=== PATIENT | male | born 1995 | race African-American/Black ===

== ENCOUNTER 2018-11-30 21:45 | Inpatient (IN) | payer OTHER ==
[~2018-11-30] VITALS: Ht 175.3 cm; Wt 65.9 kg
[2018-11-30 22:21] LABS: HEMATOCRIT 42.6 % (42.0-52.0); HEMOGLOBIN 14.1 g/dl (13.5-17.5); MEAN CORPUSCULAR HEMOGLOBIN 29.6 pg (27.0-33.0); MEAN CORPUSCULAR HGB CONC 33.1 g/dl (32.0-36.5); MEAN CORPUSCULAR VOLUME 89.3 fl (80.0-96.0); PLATELET COUNT, AUTOMATED 164 10^3/uL (150-450); RED BLOOD COUNT 4.77 10^6/uL (4.30-6.10); WHITE BLOOD COUNT 8.4 10^3/uL (4.0-10.0)
[2018-11-30 22:40] LABS: AMPHETAMINES LEVEL URINE NEGATIVE (NEGATIVE); BARBITURATES URINE NEGATIVE (NEGATIVE); BENZODIAZEPINES URINE NEGATIVE (NEGATIVE); CANNABINOIDS URINE NEGATIVE (NEGATIVE); COCAINE METABOLITE URINE NEGATIVE (NEGATIVE); METHADONE URINE NEGATIVE (NEGATIVE); OPIATES URINE NEGATIVE (NEGATIVE); PHENCYCLIDINE URINE NEGATIVE (NEGATIVE)
[2018-11-30 22:53] LABS: ACETAMINOPHEN LEVEL < 2.0 UG/ML (10.0-30.0); ALBUMIN 4.3 GM/DL (3.2-5.2); ALT/SGPT 26 U/L (12-78); BILIRUBIN,DIRECT 0.2 MG/DL (0.0-0.2); BILIRUBIN,TOTAL 0.8 MG/DL (0.2-1.0); BLOOD UREA NITROGEN 11 MG/DL (7-18); CALCIUM LEVEL 8.8 MG/DL (8.5-10.1); CARBON DIOXIDE LEVEL 30 MEQ/L (21-32); CHLORIDE LEVEL 104 MEQ/L (98-107); CREATININE FOR GFR 1.03 MG/DL (0.70-1.30); ETHYL ALCOHOL (ETHANOL) < 0.003 % (0.000-0.010); GLOMERULAR FILTRATION RATE > 60.0 (>60); GLUCOSE, FASTING 86 MG/DL (70-100); POTASSIUM SERUM 3.6 MEQ/L (3.5-5.1); SALICYLATE LEVEL < 1.7 MG/DL (5.0-30.0); SODIUM LEVEL 143 MEQ/L (136-145); THYROID STIMULATING HORMONE 0.461 uIU/ML (0.358-3.740); TOTAL PROTEIN 7.9 GM/DL (6.4-8.2)
[2018-11-30] MEDS ORDERED: MAALOX 30 ML SUSP *UDC PO PRN (23:30)
[2018-11-30] MEDS ORDERED: traZODone 50 MG TAB PO PRN (23:30)
[2018-11-30] MEDS ORDERED: MOM 30ML SUSPENSION UDC PO PRN (23:30)
[2018-11-30] MEDS ORDERED: ACETAMINOPHEN TAB 650MG DOSE (2X325MG) PO PRN (23:30)
[2018-12-01 02:04] VITALS: BP 96/52
--- NOTE | 2018-12-01 12:14 | MHHPEPDOC ---
General Date Of Admission: Nov 30, 2018 Legal Status: 9.39 Chief Complaint "I'm stressed, I'm not suicidal" History of Present Illness HISTORY OF THE PRESENT ILLNESS: Patient is a 23 -year-old , AD, male, with no previous psych history who brought to ED by EMS after being notified by pt's Wesley that he had made a comment to his commander at being suicidal with a plan to shoot himself and mentioned a 45 hand gun (no access to guns in [facility]) and asking to be dropped off at bridge to sit, think and look at the water all secondary to his aunt recently being diagnosed with breast cancer and unable to be home in [facility] to support her per ED. Pt in ED denied having any thoughts of suicide but just wanted to sit under a bridge to think about his sick aunt. Per ED by also having Wesley difficulties due [place] Pt appeared to be minimizing symptoms per ED. Psychiatric Review of Systems Depression (2 or more weeks): depressed mood Bri (4 or more days of): denies Psychosis: denies PTSD: denies Anxiety: stressor related anxiety Past Psychiatric History Previous Psychiatric Diagnosis: denies Previous Psychiatric Admissions: denies Suicide Attempts: denies Psychiatric Follow-up: denies Psychiatric Medications: none Past Medical History Medical Problems denies Head Injury: No Seizures: No Hospitalizations: No Surgeries: No Family Medical/Psychiatric HX Medical Problems noncontributory Psychiatric Disorders: No Addiction: No Suicide Attemps/Completions: No Addiction History nicotine Social History Childhood: born and raised [facility], parents never , spent time with each parent as parents friends, lived primarily with mother, 2 younger brothers and 1 younger sister. Good childhood Abuse/Trauma:denies. Current Living Situation: lives in [place] [facility] [place] Education:high school grad and 2 semesters college Employment: [employer] Social Support: family Legal: denies Marital: single, never , no kids Mental Status Examination General Appearance: well groomed, appears stated age, hospital scubs/clothing Build: average Demeanor: average Eye Contact: average Activity: average Behavior: cooperative Speech: clear, spontaneous, reg/rate,rhythm,volume Mood: euthymic Mood good Affect: full, appropriate, congruent Thought Process: logical/linear, intact Thought Content (Delusions): none reported, denies SI, HI, AVH Thought Content (Other): none reported Thought Content (Aggressive): none reported Perception (Hallucinations): none reported Perception (Other): none reported Cognition (Impairment of): none reported Cognition(Intelligence Est.): average Oriented: Awake, Alert, Oriented times three Insight: good Judgment: Good Psychosis: Denies Diagnoses adjustment d/o with depressed mood - mild A-FIB/CHADSVASC A-FIB History Current/History of A-Fib/PAF?: No Current PO Anticoag Therapy: No Treatment Treatment ordered: NONE Reason Anticoagulant not given: Not indicated/[id number] Assessment Pt seen and states he needs to be discharged today b/c he has an appt and he's not suicidal. Pt states his friends were concerned b/c he wanted to sit under a bridge and just think. Stated his friend notified his Wesley and his commander spoke with him for roughly an hour about what was going on in his life regarding not being home in [facility] and visiting his sick aunt in [place]. Denies he's suicidal. States his appt was a ticket to go by bus to [facility] today on pass. Denies he told his commander he was suicidal and wanting to shoot himself or anything about a 45 gun. Denies depression, anxiety. Feels safe to d/c with Wesley today. Initial Treatment Plan 1. Patient was admitted on a 9.39 status. 2. Complete history was obtained. 3. With patients permission, family will be contacted and database will be expanded. 4. Patients medication regimen will be reviewed and changed accordingly. 5. Patient will be provided with protected environment. 6. Patient will be treated with individual, group, and milieu therapies. 7. Patient will receive supportive psych-education. 8. Discharge planning will commence immediately. 9. Outpatient follow-up treatment will be strongly recommended. 10. The initial treatment plan will focus initially on: * Depression. * Risk for suicide. * Substance abuse. 11. monitory for safety ESTIMATED LENGTH OF STAY: 5-7 DAYS. TIME SPENT COUNSELING AND COORDINATING INITIAL CARE: 60 minutes. Vital Signs Vital Signs Date Time Temp Pulse Resp B/P (MAP) Pulse Ox O2 Delivery O2 Flow Rate FiO2 12/01/18 02:04 88.2 60 16 96/52 (67) 99 12/01/18 01:11 Room Air Laboratory Data 24H Labs Laboratory Tests 2 11/30/18 22:12: Nucleated Red Blood Cells % (auto) 0.0, Anion Gap 9, Glomerular Filtration Rate > 60.0, Calcium Level 8.8, Aspartate Amino Transf (AST/SGOT) 25, Alanine Aminotransferase (ALT/SGPT) 26, Alkaline Phosphatase 88, Total Bilirubin 0.8, Direct Bilirubin 0.2, Total Protein 7.9, Albumin 4.3, Albumin/Globulin Ratio 1.19, Thyroid Stimulating Hormone (TSH) 0.461, Salicylates Level < 1.7L, Urine Amphetamines Screen NEGATIVE, Urine Benzodiazepines Screen NEGATIVE, Urine Opiates Screen NEGATIVE, Urine Methadone Screen NEGATIVE, Acetaminophen Level < 2.0L, Urine Barbiturates Screen NEGATIVE, Urine Phencyclidine Screen NEGATIVE, Urine Cocaine Metabolite Screen NEGATIVE, Urine Cannabinoids Screen NEGATIVE, Ethyl Alcohol Level < 0.003 CBC/BMP Laboratory Tests 11/30/18 22:12 Red Blood Count 4.77, Mean Corpuscular Volume 89.3, Mean Corpuscular Hemoglobin 29.6, Mean Corpuscular Hemoglobin Concent 33.1, Red Cell Distribution Width 11.7 Medications No Active Prescriptions or Reported Meds Allergies Coded Allergies: No Known Allergies (Unverified , 11/30/18) WALTER CONLEY DO Dec 01, 2018 12:14
--- NOTE | 2018-12-01 17:12 | HPEPDOC ---
[facility] Medical History & Physical Date of Admission Nov 30, 2018 Date of Service: Dec 01, 2018 Attending Physician: WALTER FREITAS DO History and Physical CHIEF COMPLAINT: Medical evaluation requested by Dr Freitas HISTORY OF PRESENT ILLNESS:23 yo male currently in psychiatric unit for evaluation of suicidal intent,depression. He states no concerns at this time. He had a recent tatoo to right arm last week that is healing well. PAST MEDICAL HISTORY: none (patient denies DM,HTN,Thyroid disease) PAST SURGICAL HISTORY: none SOCIAL HISTORY: vapes nicotene daily, rare ETOH use Tattoos done unprofessionally: none - all tattoos done at professional sites with sterile needles and sterile individual ink containers per patient FAMILY HISTORY: both parents healthy ALLERGIES: Please see below. REVIEW OF SYSTEMS: 10 comprehensive systems reviewed and negative except as listed in HPI HOME MEDICATIONS: Please see below. PHYSICAL EXAMINATION: VITAL SIGNS: as below - questionable accuracy of values for 12/01/18 Vital Signs Label Value Date Time Patient Temperature 97.8 degrees F 11/30/182144 Temperature Source Temporal 11/30/182144 Pulse 74 11/30/182144 Respiratory Rate 16 bpm 11/30/182144 Blood Pressure Assessment 132/86 (101) 11/30/182144 Location Left Arm Source Automatic Cuff (NIBP) Position Sitting Bedside Pulse Oximetry 97 % 11/30/182144 GENERAL APPEARANCE: pleasant, NAD, AAOx3 HEENT: no thyromegally/goiter CARDIOVASCULAR: HRRR no murmur LUNGS: CTA no W/R/R ABDOMEN: deferred MUSCULOSKELETAL: normal gait, moves all 4 extremities; good muscle strength/tone. EXTREMITIES: no edema SKIN: multiple tattoo to bilateral arms NEUROLOGICAL: CN3-12 intact, no gross motor or sensory deficits. LABORATORY DATA: See below. ASSESSMENT: 23 yo medically healthy male with suicidal ideation/depression PLAN: Patient is medically stable. will sign off at this time. thank you for allowing the hospitalists to participate in the care of this patient . please call if need arises Vital Signs Vital Signs Date Time Temp Pulse Resp B/P (MAP) Pulse Ox O2 Delivery O2 Flow Rate FiO2 12/01/18 02:04 88.2 60 16 96/52 (67) 99 12/01/18 01:11 Room Air Laboratory Data Labs 24H Laboratory Tests 2 11/30/18 22:12: Nucleated Red Blood Cells % (auto) 0.0, Anion Gap 9, Glomerular Filtration Rate > 60.0, Calcium Level 8.8, Aspartate Amino Transf (AST/SGOT) 25, Alanine Aminotransferase (ALT/SGPT) 26, Alkaline Phosphatase 88, Total Bilirubin 0.8, Direct Bilirubin 0.2, Total Protein 7.9, Albumin 4.3, Albumin/Globulin Ratio 1.19, Thyroid Stimulating Hormone (TSH) 0.461, Salicylates Level < 1.7L, Urine Amphetamines Screen NEGATIVE, Urine Benzodiazepines Screen NEGATIVE, Urine Opiates Screen NEGATIVE, Urine Methadone Screen NEGATIVE, Acetaminophen Level < 2.0L, Urine Barbiturates Screen NEGATIVE, Urine Phencyclidine Screen NEGATIVE, Urine Cocaine Metabolite Screen NEGATIVE, Urine Cannabinoids Screen NEGATIVE, Ethyl Alcohol Level < 0.003 CBC/BMP Laboratory Tests 11/30/18 22:12 Red Blood Count 4.77, Mean Corpuscular Volume 89.3, Mean Corpuscular Hemoglobin 29.6, Mean Corpuscular Hemoglobin Concent 33.1, Red Cell Distribution Width 11.7 Home Medications No Active Prescriptions or Reported Meds Allergies Coded Allergies: No Known Allergies (Unverified , 11/30/18) A-FIB/CHADSVASC A-FIB History Current/History of A-Fib/PAF?: No HAYLEE HOUGH DO Dec 01, 2018 17:12
[2018-12-01 18:12] VITALS: BP 122/59
[2018-12-02 07:11] VITALS: BP 123/64
--- NOTE | 2018-12-02 08:37 | MHDSPDOC ---
[facility] Discharge Summary Discharge Summary DATE OF ADMISSION: Nov 30, 2018 at 11:26 pm DATE OF DISCHARGE: Dec 02, 2018 DISCHARGE DIAGNOSES: adjustment d/o with depressed mood REASON FOR ADMISSION: Patient is a 23 -year-old , AD, male, with no previous psych history who brought to ED by EMS after being notified by pt's Wesley that he had made a comment to his commander at being suicidal with a plan to shoot himself and mentioned a 45 hand gun (no access to guns in [place]) and asking to be dropped off at bridge to sit, think and look at the water all secondary to his aunt recently being diagnosed with breast cancer and unable to be home in [facility] to support her per ED. Pt in ED denied having any thoughts of suicide but just wanted to sit under a bridge to think about his sick aunt. Per ED by also having Wesley difficulties due to "[place] Pt appeared to be minimizing symptoms per ED. CONSULTANTS INVOLVED: none TREATMENT AND PROGRESS ON THE UNIT : Pt was admitted to [facility], seen for psychiatric assessment and monitored for safety as he did not appear to need and declined snf psychotropic medication as he preferred to try therapy first. He was provided trazodone 50mg qhs prn insomnia. Pt found his medications beneficial and tolerated them well. He attended groups daily during his stay. His symptoms improved with treatment. On day of discharge he denied depression, anxiety, insomnia, SI/HI, hallucinations, delusions. He was discharged home after Wesley meeting with follow-up at [facility]. He felt safe for discharge. DISCHARGE ASSESSMENT: Pt seen and states his mood is good and looking forward to be discharged today with his Wesley with plans to go on pass to [facility] to visit his sick aunt. States he slept well last night. He is attending groups and finding them helpful. He denies depression, anxiety, insomnia, SI/HI, hallucinations, delusions. Feels safe to d/c with Wesley today. MENTAL STATUS EXAMINATION ON DISCHARGE: General Appearance: well groomed, appears stated age, hospital scrubs/clothing Build: average Demeanor: average Eye Contact: average Activity: average Behavior: cooperative Speech: clear, spontaneous, reg/rate,rhythm,volume Mood: euthymic Mood good Affect: full, appropriate, congruent Thought Process: logical/linear, intact Thought Content (Delusions): none reported, denies SI, HI, AVH Thought Content (Other): none reported Thought Content (Aggressive): none reported Perception (Hallucinations): none reported Perception (Other): none reported Cognition (Impairment of): none reported Cognition(Intelligence Est.): average Oriented: Awake, Alert, Oriented times three Insight: good Judgment: Good Psychosis: Denies MEDICATIONS ON DISCHARGE: none PLAN/FOLLOWUP ARRANGEMENTS: d/c home with [facility] with follow-up at [facility]. The amount of time spent in the coordination of care for this patient was approximately 30 minutes. Vital Signs/I&Os Vital Signs Date Time Temp Pulse Resp B/P (MAP) Pulse Ox O2 Delivery O2 Flow Rate FiO2 12/02/18 07:11 99.9 58 12 123/64 (83) 12/01/18 02:04 99 12/01/18 01:11 Room Air Medications No Active Prescriptions or Reported Meds Allergies Coded Allergies: No Known Allergies (Unverified , 11/30/18) WALTER CONLEY DO Dec 02, 2018 8:37 am
== END 2018-12-02 10:00 | disposition home or self-care (01) | DRG 881 ==
LOC: M ED 21:45 → M ED INP 23:26 → M PSY 12-01 01:19
PROVIDERS: ADMIT Psychiatry & Neurology Psychiatry; ATTEND Psychiatry & Neurology Psychiatry
DX: F43.21 Adjustment disorder with depressed mood (principal); R45.851 Suicidal ideations

== ENCOUNTER 2019-06-04 12:27 | Emergency (ER) | payer OTHER ==
[~2019-06-04] VITALS: Ht 175.3 cm; Wt 67.7 kg
[2019-06-04 13:21] LABS: HEMATOCRIT 42.3 % (42.0-52.0); HEMOGLOBIN 13.9 g/dl (13.5-17.5); MEAN CORPUSCULAR HEMOGLOBIN 28.9 pg (27.0-33.0); MEAN CORPUSCULAR HGB CONC 32.9 g/dl (32.0-36.5); MEAN CORPUSCULAR VOLUME 87.9 fl (80.0-96.0); PLATELET COUNT, AUTOMATED 192 10^3/uL (150-450); RED BLOOD COUNT 4.81 10^6/uL (4.30-6.10); WHITE BLOOD COUNT 9.9 10^3/uL (4.0-10.0)
[2019-06-04 13:46] LABS: AMPHETAMINES LEVEL URINE NEGATIVE (NEGATIVE); BARBITURATES URINE NEGATIVE (NEGATIVE); BENZODIAZEPINES URINE NEGATIVE (NEGATIVE); CANNABINOIDS URINE NEGATIVE (NEGATIVE); COCAINE METABOLITE URINE NEGATIVE (NEGATIVE); METHADONE URINE NEGATIVE (NEGATIVE); OPIATES URINE NEGATIVE (NEGATIVE); PHENCYCLIDINE URINE NEGATIVE (NEGATIVE)
[2019-06-04 14:01] LABS: ACETAMINOPHEN LEVEL < 2.0 UG/ML (10.0-30.0); ALBUMIN 4.3 GM/DL (3.2-5.2); ALT/SGPT 30 U/L (12-78); BILIRUBIN,DIRECT 0.2 MG/DL (0.0-0.2); BILIRUBIN,TOTAL 0.7 MG/DL (0.2-1.0); BLOOD UREA NITROGEN 13 MG/DL (7-18); CALCIUM LEVEL 9.6 MG/DL (8.5-10.1); CARBON DIOXIDE LEVEL 30 MEQ/L (21-32); CHLORIDE LEVEL 104 MEQ/L (98-107); CREATININE FOR GFR 1.05 MG/DL (0.70-1.30); ETHYL ALCOHOL (ETHANOL) < 0.003 % (0.000-0.010); GLOMERULAR FILTRATION RATE > 60.0 (>60); GLUCOSE, FASTING 98 MG/DL (70-100); POTASSIUM SERUM 4.1 MEQ/L (3.5-5.1); SALICYLATE LEVEL < 1.7 MG/DL (5.0-30.0); SODIUM LEVEL 142 MEQ/L (136-145); THYROID STIMULATING HORMONE 0.498 uIU/ML (0.358-3.740)
[2019-06-04 15:15] VITALS: BP 115/60
== END 2019-06-04 15:20 | disposition home or self-care (01) ==
LOC: M ED 12:27
DX: Z04.6 Encounter for general psychiatric examination, requested by authority (principal); F17.290 Nicotine dependence, other tobacco product, uncomplicated
CPT/HCPCS: 36415; 80048; 80076; 80307; 84443; 85027; 99284; G0480

== ENCOUNTER 2019-11-04 21:15 | Emergency (ER) | payer OTHER ==
[~2019-11-04] VITALS: Ht 175.3 cm; Wt 69.5 kg
[2019-11-04 21:16] VITALS: BP 135/71
[2019-11-04] MEDS ORDERED: PROC1AER16 PR (21:53)
== END 2019-11-04 22:04 | disposition home or self-care (01) ==
LOC: M ED 21:15
DX: K64.8 Other hemorrhoids (principal)

== ENCOUNTER 2019-11-10 21:04 | Emergency (ER) | payer OTHER ==
[~2019-11-10] VITALS: Ht 175.3 cm; Wt 62.7 kg
[~2019-11-10 21:04] MED LIST: PROC1AER16 PR
[2019-11-10] MEDS ORDERED: PROC1AER16 PR (21:09)
[2019-11-10] MEDS ORDERED: ANUSOL HC 25MG SUPP PR STA (22:29)
[2019-11-10] MEDS ORDERED: NORCO 5/325MG TABLET (BULK FOR ED) PO ONE (22:30)
[2019-11-10] MEDS ORDERED: ANUS25SU PR (23:18)
[2019-11-10 23:40] VITALS: BP 127/87
== END 2019-11-10 23:42 | disposition home or self-care (01) ==
LOC: M ED 21:04
DX: N48.89 Other specified disorders of penis (principal); K64.8 Other hemorrhoids

== ENCOUNTER 2020-01-27 14:19 | Emergency (ER) | payer OTHER ==
[~2020-01-27 14:19] MED LIST changes: +ANUS25SU PR
== END 2020-01-27 15:55 | disposition home or self-care (01) ==
LOC: M ED 14:19
DX: S93.401A Sprain of unspecified ligament of right ankle, initial encounter (principal); S93.601A Unspecified sprain of right foot, initial encounter; R22.41 Localized swelling, mass and lump, right lower limb; X50.0XXA Overexertion from strenuous movement or load, initial encounter; Y93.67 Activity, basketball; Y92.9 Unspecified place or not applicable

== ENCOUNTER 2020-04-25 05:50 | Emergency (ER) | payer OTHER ==
[~2020-04-25] VITALS: Ht 175.3 cm; Wt 64.1 kg
[2020-04-25 05:50] VITALS: BP 122/69
[2020-04-25] MEDS ORDERED: ANUS2.5C2 TOP (06:31)
== END 2020-04-25 06:41 | disposition home or self-care (01) ==
LOC: M ED 05:50
DX: K64.4 Residual hemorrhoidal skin tags (principal); K62.89 Other specified diseases of anus and rectum

== ENCOUNTER 2020-09-11 17:10 | Emergency (ER) | payer OTHER ==
[~2020-09-11] VITALS: Ht 175.3 cm; Wt 66.6 kg
[~2020-09-11 17:10] MED LIST changes: +ANUS2.5C2 TOP
[2020-09-11] MEDS ORDERED: LIDOCAINE 1% SDV 5ML VIAL DILUENT ONE (19:55)
[2020-09-11] MEDS ORDERED: cefTRIAXone 500MG VIAL (J0696 PER 250MG) IM ONE (19:55)
[2020-09-11] MEDS ORDERED: DOXY100C37 PO (19:56)
[2020-09-11 20:29] VITALS: BP 125/75
[2020-09-11 21:35] LABS: CHLAMYDIA DNA AMPLIFICATION NEGATIVE (NEGATIVE); GC DNA AMPLIFICATION NEGATIVE (NEGATIVE)
== END 2020-09-11 20:44 | disposition home or self-care (01) ==
LOC: M ED 17:10
DX: Z20.2 Contact with and (suspected) exposure to infections with a predominantly sexual mode of transmission (principal)
CPT/HCPCS: 87661; 96372; 99283; J0696